=== PATIENT | female | born 1975 | race Caucasian/White ===

== ENCOUNTER 2018-03-23 00:14 | Emergency (ER) | payer MEDICAID ==
[2018-03-23] MEDS ORDERED: ACETAMINOPHEN 325 MG TABLET PO ONE (00:29)
--- NOTE | 2018-03-23 02:14 | RADIOLOGY REPORT (SQ) ---
EXAM DESCRIPTION: XR FOOT 3 OR MORE VIEWS COMPLETED DATE/TME: 03/23/2018 00:00 CLINICAL HISTORY: 42 years, Female, kicking injury COMPARISON: None. NUMBER OF VIEWS: 3 LIMITATIONS: None. FINDINGS: Mild cortical deformity at the medial aspect of the proximal diametaphysis of the right third and fourth metatarsi on frontal view only of indeterminate age. Lisfranc joint appears intact. IMPRESSION: Fracture/deformity of the right third and fourth metatarsals.
[2018-03-23] MEDS ORDERED: HYDROCODONE/ACETAMINOPHEN 5-325 MG (6 TAB/ER DISP) PO PRN (02:54)
--- NOTE | 2018-03-23 03:01 | ER Document Report ---
ED Extremity Problem, Lower - General Chief Complaint: Foot Pain Stated Complaint: RIGHT FOOT INJURY Time Seen by Provider: 03/23/18 02:29 Mode of Arrival: Ambulatory Information source: Patient Notes: Patient is a 42-year-old female who presents with chief complaint of right foot pain after she kicked her dog tonight. Patient reports that she believes she broke her foot. Patient does report that she is able to bear weight however she states that it is painful. Patient denies any history of any trauma to this foot prior to tonight. - Related Data Allergies/Adverse Reactions: guaifenesin [From Robitussin A-C] Allergy (Severe, Verified 07/10/12 18:40) Past Medical History - General Information source: Patient - Social History Smoking Status: Never Smoker Frequency of alcohol use: None Drug Abuse: None Family History: Reviewed & Not Pertinent Patient has suicidal ideation: No Patient has homicidal ideation: No - Past Medical History Cardiac Medical History: Reports: Hx Hypertension Neurological Medical History: Reports: Hx Migraine Renal/ Medical History: Denies: Hx Peritoneal Dialysis GI Medical History: Reports: Hx Ulcer - hpylori ulcer Musculoskeltal Medical History: Reports Hx Musculoskeletal Deformity, Reports Hx Musculoskeletal Trauma Psychiatric Medical History: Reports: Hx Anxiety, Hx Attention Deficit Hyperactivity Disorder, Hx Depression Traumatic Medical History: Reports: Hx Fractures Past Surgical History: Reports: Hx Cholecystectomy, Hx Orthopedic Surgery - Immunizations Immunizations up to date: Yes Hx Diphtheria, Pertussis, Tetanus Vaccination: Yes Review of Systems - Review of Systems Constitutional: No symptoms reported EENT: No symptoms reported Cardiovascular: No symptoms reported Respiratory: No symptoms reported Gastrointestinal: No symptoms reported Genitourinary: No symptoms reported Female Genitourinary: No symptoms reported Musculoskeletal: See HPI Skin: No symptoms reported Hematologic/Lymphatic: No symptoms reported Neurological/Psychological: No symptoms reported Physical Exam - Vital signs Vitals: Temp Pulse Resp BP Pulse Ox 98.6 F 85 18 126/67 H 96 03/23/18 00:32 03/23/18 00:32 03/23/18 00:32 03/23/18 00:32 03/23/18 00:32 - Notes Notes: PHYSICAL EXAMINATION: GENERAL: Well-appearing, well-nourished and in no acute distress. HEAD: Atraumatic, normocephalic. EYES: Pupils equal round and reactive to light, extraocular movements intact, conjunctiva are normal. ENT: Nares patent, oropharynx clear without exudates. Moist mucous membranes. NECK: Normal range of motion, supple without lymphadenopathy LUNGS: Breath sounds clear to auscultation bilaterally and equal. No wheezes rales or rhonchi. HEART: Regular rate and rhythm without murmurs Musculoskeletal: Normal range of motion, no pitting or edema. No cyanosis. Mild swelling noted to dorsal surface of right foot, ecchymosis noted to dorsal surface of right foot near the second and third metatarsals. NEUROLOGICAL: Cranial nerves grossly intact. Normal speech. Normal sensory, motor exams PSYCH: Normal mood, normal affect. SKIN: Warm, Dry, normal turgor, no rashes or lesions noted. Course - Re-evaluation Re-evalutation: 42-year-old female patient presenting with chief complaint of right foot pain. Patient has capillary refill less than 3 seconds to the right foot, positive motor and sensation distal to the injury. On x-ray patient does have mild cortical deformity at the medial aspect of the proximal diametaphysis of the right third and fourth metatarsi on frontal view only. This is consistent with patient's location of pain. Patient will be placed in a posterior ankle splint , given crutches, pain medications and patient will be following up with [facility] next week. After splint placement, neurovascular status to right foot remains intact. - Vital Signs Vital signs: Temp Pulse Resp BP Pulse Ox 98.4 F 80 18 133/71 H 100 03/23/18 03:15 03/23/18 03:15 03/23/18 03:15 03/23/18 03:15 03/23/18 03:15 Discharge - Discharge Clinical Impression: Metatarsal fracture Qualifiers: Encounter type: initial encounter Metatarsal bone: third Fracture type: closed Fracture alignment: displaced Laterality: right Qualified Code(s): S92.331A - Displaced fracture of third metatarsal bone, right foot, initial encounter for closed fracture Condition: Stable Disposition: HOME, SELF-CARE Additional Instructions: Fracture You have a fracture. The typical broken bone requires only protection and sufficient time for healing. "Setting" is necessary only if the bones are crooked or out of position. The physician will re-assess you periodically to make certain that the bone heals without complications. It's important that you follow the instructions given you. The initial treatment is immobilization, elevation of the injury, and cold packs. Not all fractures require a cast. Depending on the location and type of fracture, immobilization may consist of a splint, cast, sling, bulky dressing , or simply rest. The length of time required for healing depends on the location and type of fracture, and on the age of the patient. The treatment plan the physician has outlined for you is customized to your fracture and health condition. Call the doctor or return at once if pain becomes severe, or if severe swelling or numbness develop. Please take pain medication as provided. Also take ibuprofen 600 mg every 6 hours for the next few days. Do not get behind on the pain. Use ice packs as needed for comfort. Please follow-up with orthopedics, call Sunday for an appointment and tell them you have a fracture to the right third and fourth metatarsals. Prescriptions: Hydrocodone Bit/Acetaminophen [Hydrocodon-Acetaminophen 5-325] 1 each PO Q4 #12 tablet Referrals: CRICKET ALEXANDRA, [ACTIVE STAFF] - Follow up as needed
[2018-03-23 03:24] VITALS: BP 133/71
== END 2018-03-23 03:16 | disposition home or self-care (01) ==
LOC: ER 00:14
DX: S92.331A Displaced fracture of third metatarsal bone, right foot, initial encounter for closed fracture (principal); W54.1XXA Struck by dog, initial encounter; I10 Essential (primary) hypertension; Z88.8 Allergy status to other drugs, medicaments and biological substances
CPT/HCPCS: 99283; 73630; 29515; J3490